=== PATIENT | female | born 1960 | race Caucasian/White ===

== ENCOUNTER 2017-06-07 02:21 | Emergency (ER) | payer BC ==
[2017-06-07] MEDS ORDERED: NS 1,000 ML IV ONE (02:29)
[2017-06-07] MEDS ORDERED: LORazepam 2 MG/ML INJ IVP ONE (02:30)
--- NOTE | 2017-06-07 02:32 | EDPHY ---
H & P Time Seen by Provider: 06/07/17 02:30 HPI/ROS: HPI CHIEF COMPLAINT: Anxiety, shortness of breath, alcohol intoxication vomiting HISTORY OF PRESENT ILLNESS: This patient very pleasant 57-year-old female she has a history of depression, is visiting [place] from [place] she arrived here today. She went out with a friend and drank wine. She thinks that she may have had a bottle wine this evening. After returning home she got nauseous and started vomiting. She felt short of breath very anxious. 911 was called and she was brought to the emergency room for evaluation. Upon arrival to the emergency room she is anxious, she complains of nausea. But otherwise has no chest pain. Past Medical History: Depression Past Surgical History: Denies skull history Social History: Denies drugs or tobacco. Sides in [place]. Alcohol this evening approximately a bottle of wine. Family History: Noncontributory ROS REVIEW OF SYSTEMS: A comprehensive 10 point review of systems is otherwise negative aside from elements mentioned in the history of present illness. Exam Constitutional smells of alcohol, intoxicated, anxious, triage nursing summary reviewed, vital signs reviewed, awake/alert. Eyes normal conjunctivae and sclera, EOMI, PERRLA. HENT normal inspection, atraumatic, moist mucus membranes, no epistaxis, neck supple/ no meningismus, no raccoon eyes. Respiratory clear to auscultation bilaterally, normal breath sounds, no respiratory distress, no wheezing. Cardiovascular rate normal, regular rhythm, no murmur, no edema, distal pulses normal. Gastrointestinal soft, non-tender, no rebound, no guarding, normal bowel sounds, no distension, no pulsatile mass. Genitourinary no CVA tenderness. Musculoskeletal no midline vertebral tenderness, full range of motion, no calf swelling, no tenderness of extremities, no meningismus, good pulses, neurovascularly intact. Skin pink, warm, & dry, no rash, skin atraumatic. Neurologic awake, alert and oriented x 3, AAOx3, moves all 4 extremities equally, motor intact, sensory intact, CN II-XII intact, normal cerebellar, normal vision, normal speech. Psychiatric anxious Heme/Lymph/Immune no lymphadenopathy. Differential Diagnosis: Includes but is not limited to in a particular order acute anxiety, panic attack, acute alcohol intoxication, dehydration, electrolyte disturbance, nausea vomiting from altitude and dehydration and alcohol. Medical Decision Making: Plan for this patient IV establishment IV fluid bolus , IV Ativan for nausea and anxiety, check basic blood work evaluate Re-evaluation: EKG interpretation by me on record in [facility] system. Impression time of EKG 2:41 a.m., this is sinus rhythm rate of [address] elevation no ST depression no significant T-wave abnormalities Serum alcohol level 34. ED x-ray chest one view: Negative for acute cardiopulmonary disease. 0402: Re-evaluation this time patient is resting comfortably. She has no complaints she denies chest pain shortness of breath. She states she feels much better after IV Ativan. No further nausea. Most likely had nausea vomiting due to alcohol intake, dehydration, altitude. Recommend she stays well hydrated drink lots of fluid while at altitude. Refrain from drinking alcohol. Return if worsening symptoms. Source: Patient, EMS Constitutional: Initial Vital Signs Temperature (C) 36.3 C 06/07/17 02:28 Heart Rate 82 06/07/17 02:28 Respiratory Rate 18 06/07/17 02:28 Blood Pressure 122/63 H 06/07/17 02:28 O2 Sat (%) 96 06/07/17 02:28 O2 Delivery Mode Room Air Allergies/Adverse Reactions: No Known Allergies Allergy (Unverified 06/07/17 02:31) Home Medications: Medication Instructions Recorded celeXA 10 MG 06/07/17 Medical Decision Making - Data Points Laboratory Results: Laboratory Results 06/07/17 02:45 06/07/17 02:45 Medications Given: Discontinued Medications Sodium Chloride (Ns) 1,000 mls @ 0 mls/hr IV EDNOW ONE; Wide Open PRN Reason: Protocol Stop: 06/07/17 02:30 Last Admin: 06/07/17 02:42 Dose: 1,000 mls Lorazepam (Ativan Injection) 1 mg IVP EDNOW ONE Stop: 06/07/17 02:31 Last Admin: 06/07/17 02:34 Dose: 1 mg Departure - Departure Disposition: Home, Routine, Self-Care Clinical Impression: Anxiety, Vomiting Condition: Good Instructions: Dehydration (ED), Acute Nausea and Vomiting (ED), Anxiety (ED) Additional Instructions: 1. Return emergency room if develops worsening vomiting abdominal pain or you do not feel well. 2. Stay well hydrated refrain from drinking alcohol while in [place]. Referrals: Patient,NotPresent [Unknown] - As per Instructions
--- NOTE | 2017-06-07 03:02 | CPEKG ---
Heart Rate: 71 RR Interval: 845 P-R Interval: 160 QRSD Interval: 100 QT Interval: 444 QTC Interval: 483 P [place]: 62 QRS [place]: 40 T Wave [place]: 25 EKG Severity - BORDERLINE ECG - EKG Impression: SINUS RHYTHM EKG Impression: BORDERLINE T ABNORMALITIES, ANTERIOR LEADS Electronically Signed By: Anastacio Huang 08-Jun-2017 21:33:54
[2017-06-07 03:05] LABS: PLATELET COUNT 361 10^3/uL (150-400)
[2017-06-07 03:47] LABS: INR 0.97 (0.83-1.16); PROTIME(PATIENT) 13.1 SEC (12.0-15.0)
[2017-06-07 05:42] VITALS: BP 124/76; PULSE 78; RESP 20; TEMP 98.1; O2SAT 94
== END 2017-06-07 05:42 | disposition home or self-care (01) ==
DX: F41.9 Anxiety disorder, unspecified (principal); R11.10 Vomiting, unspecified; E86.9 Volume depletion, unspecified
CPT/HCPCS: 96374; G0480; J2060